=== PATIENT | female | born 1990 | race Caucasian/White ===

== ENCOUNTER 2024-06-03 11:50 | Outpatient (CLI) | payer OTHER, SELFPAY | END 2024-06-03 11:51 | disposition home or self-care (01) | LOC: NFLDREF 06-08 08:35 | PROVIDERS: Visit Provider Midwife | DX: Z34.93 Encounter for supervision of normal pregnancy, unspecified, third trimester (principal); Z3A.36 36 weeks gestation of pregnancy | CPT/HCPCS: 87081; 87653 ==

== ENCOUNTER 2024-07-01 11:23 | Outpatient (CLI) | payer OTHER, SELFPAY ==
[2024-07-02 14:25] LABS: Strep B DNA Probe Negative (Negative)
[2024-07-03 07:34] LABS: Strep B Susceptibility Needed? No
== END 2024-07-01 11:24 | disposition home or self-care (01) ==
LOC: NFLDREF 11:24
PROVIDERS: Visit Provider Midwife
DX: Z34.83 Encounter for supervision of other normal pregnancy, third trimester (principal)
CPT/HCPCS: 87081; 87653

== ENCOUNTER 2024-07-04 17:39 | Inpatient (IN) | payer OTHER, SELFPAY ==
[2024-07-04] VITALS (7 sets, daily range): BP systolic 126–136; BP diastolic 75–89; PULSE 50–74; RESP 18; TEMP 36.5–36.7; BMI 26.7
--- NOTE | 2024-07-04 16:13 | PM.OBLDTN ---
OB - Triage/Final Diagnosis Visit Information Date Seen: 07/04/24 Date of evaluation: 07/04/24 Narrative: The patient is a 34 year old 6 para 4 at 40 4/7 weeks gestation by LMP confirmed by 1st tri US, who presents with regular contractions. She has had no LOF or vaginal bleeding and reports good movement. She was a transfer to [facility] near 28w and has received routine care with no complications. She is accompanied by her , Nacho. Tx at 27 weeks 6 days gestation from [facility] in [place]?? OB Labs 12/08/2023 at NOB Blood type: O+, antibody screen negative.??? Hgb: 14.4 NOB, 13.3 at 24w??? Platelets: 108??? Rubella: Immune??? Varicella: declined? RPR: non-reactive 1st tri, declined 2nd tri??? HBsAg: non-reactive??? Hep C: negative? HIV: negative??? UC: negative? GC/Chlamydia: declined??? Genetic screening: declined? 1hr gtt: 108? IMAGING:??? 1st trimester: 12/08/2023 at 11w12??? Anatomy scan: 02/23/2024 at 22w3d??? Others: none? Assessement: Category I FHTs 40w4d Early Labor GBS negative P: Fabby will do some walking to try to progress labor. Will reassess in a couple of hours and go from there. Pt lives 1.5 hours away. They agree with plan and have no further questions at this time. Evaluation Vital signs: Vital Signs - 24 hr 07/04/24 15:47 07/04/24 15:56 Temperature 97.7 F Pulse Rate 60 Blood Pressure 134/89 Comments: Vitals Reviewed Constitutional:? Alert and oriented x3 HEENT:? Normocephalic, atraumatic Neck:? Supple Lungs:? Clear to auscultation bilaterally Heart:? Regular rate and rhythm, no murmur, rub or gallop Abdomen:? Soft, nontender, and gravid. Vertex by Italo's, confirmed with cervical exam. Extremities:? No edema or erythema Cervix:deferred NST: 128 bpm/moderate variability/accelerations present/no decelerations/contractions q4-8 minutes, mild to palp Final Diagnosis (1) Pain during labor: Status: Acute
--- NOTE | 2024-07-04 17:45 | P.LDBA_ITS ---
Subjective History of Present Illness Date Seen: 07/04/24 Narrative: Patient is being admitted to Labor and Delivery for active labor. She is a 34 year old at 40w4d weeks gestation. Her full history and physical was dictated by Marilyn CRUZ on 06/10/2024. Please see this for details. Specific Issues/Plans G 6 P 4 Partner:??Sumit Kids: Jean, Elena, Tima, Angelia Pt prefers to be called Barney H&P completed by Marilyn CRUZ 06/10/2024 ? No problems ? ? Tx at 27 weeks 6 days gestation from [facility] in [place]?? OB Labs 12/08/2023 at NOB Blood type: O+, antibody screen negative.??? Hgb: 14.4 NOB, 13.3 at 24w??? Platelets: 108??? Rubella: Immune??? Varicella: declined? RPR: non-reactive 1st tri, declined 2nd tri??? HBsAg: non-reactive??? Hep C: negative? HIV: negative??? UC: negative? GC/Chlamydia: declined??? Genetic screening: declined? 1hr gtt: 108? IMAGING:??? 1st trimester: 12/08/2023 at 11w12??? Anatomy scan: 02/23/2024 at 22w3d??? Others: none? COVID:?? Flu:??declined Tdap:??? 32wk Mental Health:?05/03/2024 34wk hgb:??? Pap: 11/18/2020, records only state this was normal. Also notes a previous history of abnormal OB - Problem Based A/P Additional Plan (1) Pain during labor: Status: Acute (2) : Status: Acute Plan ASSESSMENT:?? 34 at 40w4d gestation?? complicated by:??none Labor type: Spontaneous, Early/Active labor?? Category 1 FHR pattern.??? Labor complicated by: none?? GBS negative? PLAN:?? 1. Routine intrapartum cares as ordered. Continue with expectant management?? 2. Monitoring per policy, intermittent?? 3. Planning unmedicated . Desires water . Consent signed. Hep C negative. Candidate for analgesia of choice.??? 4. Patient encouraged to reposition and ambulate to promote physiologic labor and .?? 5. Anticipate ? OB Result Labs Blood Type: O (+) positive Rubella: immune RPR/VDLR: nonreactive GBS Status: negative HBsAG: negative OB Exam Physical Exam Vital signs: Temp Pulse BP 97.7 F 60 134/89 07/04/24 15:56 07/04/24 15:47 07/04/24 15:47 Narrative: Vitals Reviewed Constitutional:? Alert and oriented x3 HEENT:? Normocephalic, atraumatic Neck:? Supple Lungs:? Clear to auscultation bilaterally Heart:? Regular rate and rhythm, no murmur, rub or gallop Abdomen:? Soft, nontender, and gravid. Vertex by Italo's, confirmed with cervical exam. Extremities:? No edema or erythema Cervix: 3.5 cm/80%/-1 station/vertex NST: 130 bpm/moderate variability/accelerations present/decelerations absent/contractions q 4-5 min per patient increasing in intensity
--- NOTE | 2024-07-04 21:44 | PM.OBPNL ---
Subjective Date Seen: 07/04/24 Narrative: Barney is a 34 yo at 40w4d here for active labor. Contractions q 3 minutes, increasing in strength per the patient who is comfortable in the tub currently. No LOF or vaginal bleeding. Good movement. Nacho is supportive. Earlier she was reporting baby shakes that resolved when she got in the tub. She reports the tub doesn't seem to have slowed anything and she feels she is coping well. No rectal pressure yet. Objective Exam: Vitals Reviewed Constitutional:? Alert and oriented x3 HEENT:? Normocephalic, atraumatic Extremities:? No edema or erythema Cervix:deferred IA: 140 bpm per minutes baseline, audible increases present, no audible decreases Vital Signs: Last Vital Signs Temp 98.0 F 07/04/24 20:00 Pulse 54 L 07/04/24 21:00 Resp 18 07/04/24 21:00 BP 135/77 07/04/24 21:00 Plan Plan: ASSESSMENT:?? 34 at 40w4d gestation?? complicated by:??none Labor type: Spontaneous, Active labor?? Category 1 FHR pattern.??? Labor complicated by: none?? GBS negative? PLAN:?? 1. Routine intrapartum cares as ordered. Continue with expectant management?? 2. Monitoring per policy, intermittent?? 3. Planning unmedicated . Desires water . Consent signed. Hep C negative. Candidate for analgesia of choice.??? 4. Patient encouraged to reposition and ambulate to promote physiologic labor and .?? 5. Anticipate ?
[2024-07-05] VITALS (15 sets, daily range): BP systolic 122–158; BP diastolic 62–85; PULSE 49–92; RESP 16–18; TEMP 36.7–37.1; O2SAT 96–98
--- NOTE | 2024-07-05 00:39 | W.PM.VAGDE_ITS ---
OB Procedure Vag Delivery Mother Details Mother Details: The patient is a 34 year-old, 6, Para 4, admitted on 07/04/24 at 40 5/7 weeks gestation. Admission Date: 07/04/24 Additional Details Amniotic Membrane Status: SROM Amniotic Membrane Rupture Date: 07/04/24 Amniotic Membrane Rupture Time: 23:35 Amniotic Membrane Fluid Description: Clear Analgesia/Anesthesia Type: None Waterbirth: Yes Pitcoin: Yes Intrapartal Events: None Labor Onset: 11:00 Complete: 23:40 Pushin:40 Heart: heart tones during second stage were intermittently monitored and we were unable to find a few times due to patient positioning and pushing. When found, were 140s with no audible decreases, and no audible increases. Delivery Details Delivery Date: 07/05/24 Delivery Time: 12:16 Route of delivery: Gender: Male Infant Viability: Alive; Heart Rate Present Position at Delivery: OP (straight) Delivery Details: Patient was admitted for early/active labor and progressed normally. SROM noted at 2335 with clear fluid. Patient was complete at 2340, assumed with spontaneous pushing. of a viable male at 1216 in hands and knees in the tub. Vertex delivered OP. Head did not restitute until the next contraction and he delivered immediately and easily. There was no shoulder dystocia. One tight nuchal cord s lipped easily, then Barney brought baby up out of water. His tone was initially good, looking around, with good heart rate. I suctioned his mouth and nose. I turned him to his back on his mom's chest and he got very limp. Cord was clamped and cut and he immediately cried. Was only hat the warmer briefly since he was then vigorous. Cord was clamped and cut at approx 30 seconds. APGARS were 5 at one minute and 9 at five minutes respectively. Intact placenta with a 3 vessel cord delivered spontaneously at 0024. Large retroplacental clot expressed. Atony briefly after placental delivery triggered administration of pitocin with good results. Fundus firm. No lacerations. QBL 760 cc. Mother and baby stable; mother plans to breastfeed. Infant weight 8#2oz. 2 elevated BP immediately post . They have not been sustained and BP now is 139/62. ?If one more elevation noted, will check labs. PCR will not be applicable . 1 Minute Interval Total Score: 5 5 Minute Interval Total Score: 9 Additional Details Shoulder Dystocia: No Placenta Delivery Time: 00:24 Placental Delivery Description: Spontaneous Laceration: None Blood Loss Measurement Type: EBL (560 weighed + 200 in tub) Bakri Used: No Sponge/Need Count Correct: Yes Cord Vessel Description: 3 Vessels, Nuchal Cord, Reduced and Clamped/Cut Event Summary Status: Mother and were stable after delivery.
[2024-07-05] MEDS: OXYTOCIN 10 UNIT/ML INJ IM (00:44)
[2024-07-05] MEDS: IBUPROFEN 600 MG TABLET PO ×2 (01:04→20:20)
[2024-07-06] VITALS: BP 124/76; PULSE 92; RESP 16; TEMP 36.7; O2SAT 96
[2024-07-06 06:25] LABS: Hemoglobin* 11.4 gm/dL (12.0-16.0)
--- NOTE | 2024-07-06 07:35 | PM.OBDSVD1 ---
DS: Providers Provider Date Seen: 07/06/24 Date of admission: 07/04/24 17:39 Primary care physician: Not a Local Provider Admitting Clinician: Alexia Bocanegra CNM Attending Physician on discharge: Alexia Bocanegra CNM Date of Discharge: 07/06/24 DS: Diagnosis Discharge Diagnosis (1) Lactating mother: Status: Acute (2) care following vaginal delivery: Status: Acute Exam Narrative: Exam Narrative: GENERAL APPEARANCE:? normal affect, alert, no distress? MOOD:? appropriate? CHEST:? clear to auscultation and percussion? HEART:? regular rate and rhythm? ABDOMEN:? soft, non-tender the uterine fundus is U/2 and is appropriate for the stage of recovery.? PERINEUM:? mild edema of the perineum, there is a intact perineum that is healing well.? EXTREMITIES:? normal and no edema? Const: Vital Signs, click to edit/add: Vital Signs - 24 hr 07/05/24 08:45 07/05/24 12:44 07/05/24 16:38 Temperature 98.6 F 98.1 F Pulse Rate [Pulse Oximeter] 70 74 74 Respiratory Rate 18 18 17 Blood Pressure [Ri ght Arm] 128/74 130/82 123/83 Pulse Oximetry 96 96 98 Oxygen Delivery Me thod Room Air Room Air Room Air 07/05/24 19:20 07/06/24 00:00 Temperature 98.2 F 98.0 F Pulse Rate [Pulse Oximeter] 92 92 Respiratory Rate 16 16 Blood Pressure [Ri ght Arm] 124/79 124/76 Pulse Oximetry 97 96 Oxygen Delivery Me thod Room Air Room Air Documenting provider has reviewed patient's vital signs: yes OB - DS: Summary Hospital Course Hospital Course: Barney is a 34 year old G 6 P 5 at 40.5weeks gestation that was admitted to the Center on 07/04/24 for labor. She had an uncomplicated vaginal delivery. She delivered a viable male infant. She is breast feeding and feels it is going very well at this time. the patient has done well. Her pain is well controlled with current medications.? She has no new complaints.? Urinary output is adequate and she is voiding without difficulty.? Has a good appetite, is tolerating a general diet, is passing flatus, and has not had a bowel movement.? Has scant amount of rubra lochia.? She is ambulating well. Her blood pressures have been WNL since recovery when she had 2 elevated blood pressures. I did review Preeclampsia symptoms as a precaution. She is still deciding what she desires for PP contraception. She may do her 2 wk PP visit virtual due living far away from the hospital. Peripartum Data Infant delivery method: Vaginal Laceration description: None Episiotomy description: None complications: none Infant Gender: Male Discharge Plan: Home Status at Discharge Functional status at discharge: independent ambulation Overall status at discharge: patient is progressing back to baseline Time Spent with Patient Time attestation: Total time spent providing and/or coordinating discharge services: Discharge Plan Discharge Disposition: Home, Self-Care Date of Admission: 07/04/24 17:39 Attending Provider on Discharge: Tiffany Plasencia Primary Care Provider: Provider,Not a Local Condition: Stable Anticipated Discharge Date/Time: 07/06/24 10:00 Discharge Medications: New docusate sodium 100 mg Capsule 100 mg PO DAILY Qty: 90 0RF Rx Instructions: Take 1-2 tablets daily as needed for constipation. ibuprofen 600 mg Tablet 600 mg PO Q6H PRNQty: 60 0RF Continued cholecalciferol (vitamin D3) 25 mcg (1,000 unit) capsule 25 mcg PO QDAY DHA 200 mg capsule 200 mg PO DAILY omega 2-tqr-vtt-fish oil [Fish Oil] 1,000 mg (120 mg-180 mg) capsule 1 cap PO QDAY magnesium 250 mg tablet 250 mg PO QDAY Discharge Orders: Discharge Order (Routine); Ordered 07/06/24 Ordered By: Tiffany Plasencia Patient Education: OB Vaginal/Breast Feeding Additional Instructions: Discharge instructions were reviewed with the patient including signs and symptoms of infection and home going medications.? Lifting Restrictions: 20 pounds for 6? weeks? ?? Do not drive while taking narcotic pain meds.? Off Work or School for 6 weeks.? ?? Symptoms to report to doctor:? -Bleeding that saturates more than one pad per hour? -Passing clots larger than the size of a golf ball? -Pain not relieved by prescribed medication? -Fever above 100.4 degrees Fahrenheit? -A foul vaginal odor? -Difficulty in emotions, mood and functions? -Thoughts of hurting yourself and/or ? -Painful, reddened area in your breast? -Any drainage, redness or tenderness in your IV/epidural site? -Severe headache that doesn't improve after taking medications? -Changes in vision, including temporary loss of vision, blurred vision, and/or light sensitivity? -Upper abdominal pain (usually under ribs on the right side)? -Decrease in urination or painful, frequent urinating? -Chest pain? -Shortness of breath? -Tenderness or pain with redness and/swelling in the calf(s) of your leg? ?? Follow Up in clinic in 2 and 6 weeks.? ?? consultation services are available to all mothers and babies for the first year after delivery.? To make an appointment, please call [phone].? Activity Level: Activity as Tolerated Discharge Diet: Regular Follow Up Appointments: Provider,Not a Local [Primary Care Provider] - [facility] [Provider Group] Forms: MyHealth Info Instructions
[2024-07-06 08:48] VITALS: BP 113/73; PULSE 51; RESP 16; TEMP 36.3; O2SAT 97
[2024-07-06 16:02] VITALS: BP 112/71; PULSE 67; RESP 17; TEMP 36.9; O2SAT 97
[2024-07-07 23:42] LABS: Rapid Plasma Reagin (RPR) Non Reactive (Non Reactive)
== END 2024-07-06 18:40 | disposition home or self-care (01) | DRG 807 ==
LOC: OB OUT 17:40 → OB 07-06 07:36
PROVIDERS: Admitting Provider Midwife; Visit Provider Midwife
DX: O62.2 Other uterine inertia (principal); Z37.0 Single live birth; Z3A.40 40 weeks gestation of pregnancy
CPT/HCPCS: 36415; 85018; 86592; G0463; A9270; J2590